=== PATIENT | female | born 2000 | race Caucasian/White ===

== ENCOUNTER 2024-11-13 19:53 | Emergency (ER) | payer OTHER ==
[~2024-11-13] VITALS: Ht 182.9 cm; Wt 97.1 kg
[2024-11-13] MEDS ORDERED: SODIUM CHLORIDE 0.9% 1,000 ML IV ONE (20:30)
[2024-11-13] MEDS ORDERED: KETOROLAC TROMETHAMINE 30 MG/ML VIAL IV ONE (20:30)
[2024-11-13] MEDS ORDERED: ondansetron HCL 4 MG/2 ML VIAL IV ONE (20:30)
[2024-11-13 21:08] LABS: BASOPHILS 0.5 % (0-2); HEMATOCRIT 39.7 % (35.0-50.0); HEMOGLOBIN 13.2 g/dL (12.0-18.0); LYMPHOCYTES 11.4 % (24-44); MCH 26.2 (27-36); MCHC 33.2 g/dl (30-36); MCV 78.9 fl (81-99); MONOCYTES 11.8 % (0-12); NEUTROPHILS 75.3 % (39-80); PLATELET COUNT 174 K/uL (140-440); RBC 5.03 M/ul (4.3-5.7); RDW 14.8 (10.5-15.0)
[2024-11-13 21:12] LABS: BILIRUBIN, URINE NEGATIVE (negative); BLOOD/HGB, URINE NEGATIVE (Negative); KETONE, URINE NEGATIVE (Negative); LEUK ESTERASE, URINE NEGATIVE (negative); NITRITE, URINE NEGATIVE (negative); PH, URINE 7.5 (5-7)
[2024-11-13 21:23] LABS: ALBUMIN 3.7 g/dL (3.4-5.0); ALBUMIN/GLOBULIN RATIO 1.06 (1.1-2.4); ANION GAP 11.8 (7-21); BILIRUBIN, TOTAL 0.8 mg/dL (0.2-1.0); BUN/CREATININE RATIO 5.97 (6.0-28.6); CALCIUM 8.6 mg/dL (8.5-10.1); CREATININE, SERUM 0.67 mg/dL (0.55-1.02); POTASSIUM 3.8 mmol/L (3.5-5.1); PROTEIN, TOTAL 7.2 g/dL (6.4-8.2)
[2024-11-13 22:23] VITALS: BP 112/68
== END 2024-11-13 22:23 | disposition left against medical advice (07) ==
LOC: ED 19:53
PROVIDERS: Family Medicine
DX: R10.9 Unspecified abdominal pain (principal); Z87.891 Personal history of nicotine dependence; Z53.29 Procedure and treatment not carried out because of patient's decision for other reasons
CPT/HCPCS: 36415; 80053; 81003; 84703; 85025; 96374; 99284-25; J1885; J7030

== ENCOUNTER 2025-03-29 21:22 | Emergency (ER) | payer OTHER ==
[~2025-03-29] VITALS: Ht 182.9 cm; Wt 91.4 kg
[2025-03-29 22:12] LABS: BASOPHILS 0.7 % (0.1-1.2); EOSINOPHILS 2.7 % (0.7-5.8); LYMPHOCYTES 30.8 % (19.3-51.7); MCH 26.2 PG (25.6-32.2); MCHC 32.7 g/dL (32.2-35.5); MCV 80.1 fL (79.4-94.8); MONOCYTES 7.3 % (4.7-12.5); NEUTROPHILS 58.3 % (34.0-71.1); RBC 5.12 M/uL (3.93-5.22)
[2025-03-29 22:48] LABS: ABO O; ANTIBODY SCREEN NEGATIVE; RH POSITIVE
[2025-03-29 22:50] LABS: ALT (SGPT) 27.0 U/L (14-59); AST (SGOT) 15.0 U/L (15-37); GLOMERULAR FILTRATION RATE,EST 102.0 mL/min (>60); PROTEIN, TOTAL 7.1 g/dL (6.4-8.2); UREA NITROGEN 9.0 mg/dL (7-18)
[2025-03-29 22:56] LABS: BLOOD/HGB, URINE NEGATIVE (Negative); KETONE, URINE TRACE (Negative); LEUK ESTERASE, URINE NEGATIVE (negative); NITRITE, URINE NEGATIVE (negative)
[2025-03-29 23:46] VITALS: BP 126/99
== END 2025-03-29 23:53 | disposition home or self-care (01) ==
LOC: ED 21:22
PROVIDERS: Family Medicine
DX: O20.9 Hemorrhage in early pregnancy, unspecified (principal); Z3A.01 Less than 8 weeks gestation of pregnancy; Z87.891 Personal history of nicotine dependence
CPT/HCPCS: 36415; 76801; 76817; 80053; 81003; 84702; 85025; 86850; 86900; 86901; 99284-25

== ENCOUNTER 2025-04-08 11:35 | Emergency (ER) | payer OTHER ==
[~2025-04-08] VITALS: Ht 170.2 cm; Wt 89.7 kg
--- OUTSIDE RECORDS SUMMARY | 2025-04-08 11:42 | XMS ---
PreManage Notification: HARINI HENAO [facility] Physical Therapist Events No recent Security Events currently on file CRITERIA MET - [facility] - 2 Visits in 30 Days CARE PROVIDERS [facility] Current PHONE: [phone] Myrna has no Care Guidelines for this patient. [place] VISIT COUNT (12 MO.) 3 [facility] TOTAL 3 NOTE: Visits indicate total known visits. ED/C VISIT TRACKING (12 MO.) 04/08/2025 11:35 [facility] TYPE: Emergency COMPLAINT: - VAGINAL BLEEDING 03/29/2025 21:22 [facility] TYPE: Emergency COMPLAINT: - VAGINAL BLEEDING DIAGNOSES: - Hemorrhage in early , unspecified - Less than 8 weeks gestation of - Personal history of nicotine dependence 11/13/2024 19:54 [facility] TYPE: Emergency COMPLAINT: - FLANK PAIN/KIDNEY DIAGNOSES: - Personal history of nicotine dependence - Procedure and treatment not carried out because of patient's decision for other reasons - Unspecified abdominal pain INPATIENT VISIT TRACKING (12 MO.) No inpatient visits to display in this time frame [email or web address]
[2025-04-08 12:50] LABS: BASOPHILS 0.7 % (0.1-1.2); EOSINOPHILS 3.6 % (0.7-5.8); LYMPHOCYTES 30.9 % (19.3-51.7); MCH 26.3 PG (25.6-32.2); MCHC 32.6 g/dL (32.2-35.5); MCV 80.8 fL (79.4-94.8); MONOCYTES 8.9 % (4.7-12.5); NEUTROPHILS 55.7 % (34.0-71.1); RBC 5.20 M/uL (3.93-5.22)
[2025-04-08 13:08] LABS: ALT (SGPT) 26.0 U/L (14-59); AST (SGOT) 14.0 U/L (15-37); GLOMERULAR FILTRATION RATE,EST 127.0 mL/min (>60); PROTEIN, TOTAL 7.4 g/dL (6.4-8.2); UREA NITROGEN 8.0 mg/dL (7-18)
[2025-04-08 13:14] LABS: ABO O; RH POSITIVE
[2025-04-08 14:07] VITALS: BP 135/78
== END 2025-04-08 14:04 | disposition home or self-care (01) ==
LOC: ED 11:35
PROVIDERS: Emergency Medicine
DX: O20.0 Threatened abortion (principal); Z3A.08 8 weeks gestation of pregnancy; Z87.891 Personal history of nicotine dependence
CPT/HCPCS: 36415; 80053; 84702; 85025; 86900; 86901; 99284